=== PATIENT | female | born 1975 | race Caucasian/White ===

== ENCOUNTER 2021-07-20 14:12 | Outpatient (CLI) | payer BC | END 2021-07-20 14:13 | disposition home or self-care (01) | LOC: CSHMAMMO 14:12 | PROVIDERS: ATTEND Obstetrics & Gynecology | DX: Z12.31 Encounter for screening mammogram for malignant neoplasm of breast (principal) | CPT/HCPCS: 77063; 77067 ==

== ENCOUNTER 2022-07-21 09:38 | Outpatient (CLI) | payer BC | END 2022-07-21 09:39 | disposition home or self-care (01) | LOC: CSHMAMMO 09:38 | PROVIDERS: ATTEND Obstetrics & Gynecology | DX: Z12.31 Encounter for screening mammogram for malignant neoplasm of breast (principal) | CPT/HCPCS: 77063; 77067 ==

== ENCOUNTER 2023-11-10 09:01 | Outpatient (CLI) | payer OTHER ==
[2023-11-10] MEDS ORDERED: Magnevist 469MG/ML 20 ML VIAL ONE (12:58)
== END 2023-11-10 09:02 | disposition home or self-care (01) ==
LOC: CSHMRI 09:01
PROVIDERS: ATTEND Family Medicine
DX: G44.52 New daily persistent headache (NDPH) (principal)
CPT/HCPCS: 70553; 76377

== ENCOUNTER 2025-02-09 09:09 | Outpatient (CLI) | payer OTHER | END 2025-02-09 09:10 | disposition home or self-care (01) | LOC: CSHSLEEP 09:09 | PROVIDERS: ATTEND Family Medicine Sports Medicine | DX: G47.33 Obstructive sleep apnea (adult) (pediatric) (principal); F51.9 Sleep disorder not due to a substance or known physiological condition, unspecified; R53.83 Other fatigue; R51.9 Headache, unspecified; F32.A Depression, unspecified; F41.9 Anxiety disorder, unspecified; R06.83 Snoring; G47.10 Hypersomnia, unspecified | CPT/HCPCS: 95810 ==